=== PATIENT | female | born 1980 | race Caucasian/White ===

== ENCOUNTER → 2017-05-29 | Outpatient (CLI) | payer BC, OTHER ==
[~2017-05-29] MED LIST: AMIT25TA19 PO; BUSP1TAB46 PO; CETI10TA84 PO; CYCL10TA6 PO; FLUT50SP14 NAE; GABA600T PO; METO5TAB2 PO; NAPR1TAB9 PO; NUVVR VAGRING; PANT40TA PO
[2017-05-29 17:32] LABS: BASO % 0.6 %; BASO ABS # 0.03 K/uL (0-0.2); COMPLETE YES; EOS % 0.9 %; HEMATOCRIT 38.6 % (37-47); IG% 0.2 %; LYMPH % 43.8 %; LYMPH ABS # 2.35 K/uL (1.2-3.4); MEAN CELL VOLUME 84.5 fL (80-100); MEAN CORPUSCULAR HEMOGLOBIN 27.8 pg (25-34); MEAN CORPUSCULAR HGB CONC 32.9 g/dl (32-36); MEAN PLATELET VOLUME 10.8 fL (7.4-10.4); MONO % 4.5 %; PLATELET COUNT 302 K/uL (130-400); RED BLOOD COUNT 4.57 M/uL (4.2-5.4); WHITE BLOOD COUNT 5.36 K/uL (4.8-10.8)
[2017-05-29 17:39] LABS: ALT/SGPT 14 U/L (12-78); AST/SGOT 10 U/L (15-37); BLOOD UREA NITROGEN 13 mg/dl (7-18); CALCIUM 8.7 mg/dl (8.5-10.1); CARBON DIOXIDE 25 mmol/L (21-32); CHLORIDE 112 mmol/L (98-107); CREATININE 0.69 mg/dl (0.60-1.20); GLUCOSE 94 mg/dl (70-99); POTASSIUM 4.4 mmol/L (3.5-5.1); SODIUM 143 mmol/L (136-145)
[2017-05-29 17:50] LABS: ALB/GLOB RATIO 0.9 (0.9-2); ALKALINE PHOSPHATASE 68 U/L (45-117)
== END | disposition home or self-care (01) ==
LOC: C.LABBFT 12:13
PROVIDERS: ATTEND Physician Assistant Medical
DX: R63.5 Abnormal weight gain (principal)

== ENCOUNTER → 2017-10-24 | Outpatient (CLI) | payer BC | END | disposition home or self-care (01) | LOC: C.PAPS 11:13 | PROVIDERS: ATTEND Obstetrics & Gynecology | DX: Z01.419 Encounter for gynecological examination (general) (routine) without abnormal findings (principal) ==

== ENCOUNTER → 2017-11-22 | Outpatient (CLI) | payer BC ==
--- NOTE | 2017-11-22 16:43 | DIAGNOSTIC IMAGING REPORT ---
TEMPOROMANDIBULAR JOINT CLINICAL HISTORY: TEMPOROMANDIBULAR DISORDER,M26.609 COMPARISON STUDY: No previous studies for comparison. FINDINGS: The temporomandibular joints appear normal on conventional radiographic evaluation. There is no dislocation. Both mandibular condyles move symmetrically. IMPRESSION: Normal conventional radiographic evaluation of the TMJs Electronically signed by: Rubén Coulter M.D. 11/22/2017 4:42 PM Dictated Date/Time: 11/22/2017 4:38 PM
== END | disposition home or self-care (01) ==
LOC: C.RAD 16:12
PROVIDERS: ATTEND Physician Assistant Medical
DX: M26.609 Unspecified temporomandibular joint disorder, unspecified side (principal)

== ENCOUNTER → 2017-12-15 | Outpatient (CLI) | payer BC ==
--- NOTE | 2017-12-15 09:47 | DIAGNOSTIC IMAGING REPORT ---
CHEST AND ABDOMEN 2 VIEWS HISTORY: K59.00 [id number] generalized abdominal pain of multiple [id number] A COMPARISON: Chest 09/07/2015. FINDINGS: The lungs are clear. The cardiomediastinal silhouette is within normal limits. There is no pneumoperitoneum or pneumatosis. The bowel gas pattern is unremarkable. No evidence for bowel obstruction. No renal or ureteral calculi. Small to moderate amount of stool within the colon and rectum. S1 demonstrates partial lumbarization. IMPRESSION: No acute cardiopulmonary process. No evidence for bowel obstruction. Electronically signed by: Bay Colbert M.D. 12/15/2017 9:46 AM Dictated Date/Time: 12/15/2017 9:43 AM
== END | disposition home or self-care (01) ==
LOC: C.RAD1850 09:18
PROVIDERS: ATTEND Physician Assistant
DX: K59.00 Constipation, unspecified (principal); R14.0 Abdominal distension (gaseous); R10.9 Unspecified abdominal pain

== ENCOUNTER → 2017-12-18 | Outpatient (CLI) | payer BC ==
[~2017-12-18] MED LIST changes: +OPTIRAY 320 IV PRN
--- NOTE | 2017-12-18 16:02 | DIAGNOSTIC IMAGING REPORT ---
CT ABD/PELVIS IV AND ORAL CONT CLINICAL HISTORY: R10.32 Abdominal pain, LLQ (left lower quadrant)R19.4 Change in bowel habits COMPARISON STUDY: 11/25/2013 TECHNIQUE: Following the IV administration of 120 mL of Optiray-320, CT scan of the abdomen and pelvis was performed from the lung bases to the proximal femurs. Images are reviewed in the axial, sagittal, and coronal planes. IV contrast was administered without complication. A dose lowering technique was utilized adhering to the principles of ALARA. CT DOSE: 1071.20 mGycm FINDINGS: Lower chest: There are minor dependent atelectatic changes present. Liver: The contrast-enhanced liver is normal in size, contour, and attenuation. There is no intrahepatic biliary ductal dilatation. The hepatic veins and portal veins are patent. Gallbladder: Unremarkable. Spleen: Normal in size and attenuation. Pancreas: Unremarkable. Adrenal glands: Unremarkable. Kidneys: There is symmetric renal cortical enhancement. The kidneys are normal in size without hydronephrosis. Bowel: There are no transition zones indicate bowel obstruction. There is no evidence of acute appendicitis. There is no evidence of acute diverticulitis. Peritoneum: There is no intraperitoneal free air or abdominal ascites. Vasculature: The abdominal aorta is normal in course and caliber. Adenopathy: None. Pelvic viscera: There is a 21 mm left ovarian follicle. Skeletal structures: No destructive osseous lesions are seen. IMPRESSION: 1. No acute intra-abdominal or pelvic findings 2. No evidence of bowel obstruction. No evidence of free air 3. No evidence of acute diverticulitis. No evidence of acute appendicitis. Electronically signed by: Rubén Coulter M.D. 12/18/2017 4:01 PM Dictated Date/Time: 12/18/2017 3:56 PM
== END | disposition home or self-care (01) ==
LOC: C.CTS 13:01
PROVIDERS: ATTEND Physician Assistant
DX: R10.32 Left lower quadrant pain (principal); R19.4 Change in bowel habit

== ENCOUNTER → 2018-06-21 | Outpatient (CLI) | payer BC ==
[~2018-06-21] MED LIST changes: -OPTIRAY 320 IV PRN
== END | disposition home or self-care (01) ==
LOC: C.LABBFT 14:09
PROVIDERS: ATTEND Physician Assistant Medical
DX: T14.8XXA Other injury of unspecified body region, initial encounter (principal); W57.XXXA Bitten or stung by nonvenomous insect and other nonvenomous arthropods, initial encounter